=== PATIENT | female | born 1965 ===

== ENCOUNTER → 2021-05-08 | Outpatient (CLI) | payer MEDICAID ==
[~2021-05-08] MED LIST: ACET325T21 PO; ALBU2.5V8 IH; ASPI-630 PO; ATOR10TA PO; BENZ0.5T32 PO; CARV25TA2 PO; CLONAZEPAM1 MG PO; DEXAMETHASONE PRES.FREE 10 MG/ML VIAL. ONE; DIVA-53 PO; DOCU100C28 PO; FEXO-213 PO; FLUT16SP NS; IOHEXOL 180 MG/ML 10 ML VIAL. ONE; LAMO25TA5 PO; LEVO25TA4 PO; LOSA25TA54 PO; NORT25CA PO; OXYC1TAB15 PO; PANT40TA77 PO; QUET400T4 PO; SPIR25TA PO; TIZA-75 PO
--- NOTE | 2021-05-08 12:43 | PDOC4 ---
Procedure Note: ICD 10 Code: ICD 10 Code: M54.16 M51.36 M4 8.06 Procedure Note: Patient was consented for lumbar epidural steroid injection with fluoroscopic guidance. Risks were discussed including but not limited to: Bleeding, infection, possibility of epidural hematoma and subsequent neurological compromise, dural puncture, headaches, spinal cord and/or nerve damage, side effects of steroid medication, and poor results regarding pain control. Patient understands and wished to proceed. Procedure is lumbar epidural steroid injection under local anesthetic using mary rile prep and drape at the L4-5 level using C-arm fluoroscopic guidance in both AP and lateral views medications injected is 20 mg dexamethasone +10mL preservative-free normal saline and 2 mL contrast- condition at discharge is stable patient tolerated procedure well had no complications. ALESSANDRO VIRGEN MD May 08, 2021 12:43
--- NOTE | 2021-05-08 12:43 | PDOC1 ---
INITIAL PAIN CONSULT DATE OF SERVICE: DOS: DATE: 05/08/21 TIME: 12:35 CHIEF COMPLAINT: Chief Complaint: Low back and right lower extremity pain HISTORY OF PRESENT ILLNESS: 55-year-old female presents history of pain for about 5 months in the low back and right lower extremity without specific injury or accident that she is aware of is getting worse over time with pain across the low back into the right lower extremity posterior gluteus posterior lateral thigh lateral anterior thigh anteromedial thigh posterior calf and into the ankle and the top of the foot on the right side primarily worse with walking and standing changing positions. Patient reports it wakes her from sleep multiple times throughout the night does not affect her bowel bladder control but does affect her ability to walk and she has a cane which she is using with her today and holding in her left hand. Patient reports she has been seen by a neurosurgeon recently who is not recommending any surgery at this time and we do have those notes from Dr. Abhishek Erickson patient did have MRI scan lumbar spine we reviewed that with her today as well showing some significant changes with diffuse degenerative change greatest in the lower lumbar segments to space disease greatest at L4-5 with broad-based posterior disc bulge with left posterior paracentral disc protrusion or extrusion resulting in mild deformity of the ventral thecal sac and narrowing of the left lateral recess with moderate to severe facet arthropathy and ligamentum flavum hypertrophy resulting in moderate central canal stenosis and mild bilateral neuroforaminal stenosis L5-S1 shows small broad-based posterior disc bulge without significant stenosis L3-4 shows moderate broad-based posterior disc bulge with moderate facet arthropathy and ligamentum flavum hypertrophy wit h a mild central canal stenosis. Patient rates her disability rating 0-10, 10 being the worst as a 10 in all categories family house possibilities recreation social activity occupation sexual waiver self-care and life support activities. Patient has had physical therapy and still doing the stretching strength exercises from therapy also is taking oxycodone and morphine in the past which did do very well hydrocodone caused allergic reaction. Patient also taking Tylenol [id number] as well. Patient reports significant fatigability of the right lower extremity with ambulation but no actual full motor loss. Patient reports no bowel or bladder incontinence. PAST MEDICAL HISTORY: PMH: Hypertension, arthritis PREVIOUS SURGERIES: Past Surgical Hx: Right knee replacement x2, anterior cervical discectomy and fusion CURRENT MEDICATIONS: Current Meds: Active Scripts Medications Dose Route/Sig Max Daily Dose Days Date Category Levothyroxine Sodium 25 Mcg Tablet 1 Tab PO DAILY 05/08/21 Reported Tizanidine Hcl 4 Mg Tablet 4 Mg PO QID PRN 05/08/21 Reported Aldactone (Spironolactone) 25 Mg Tablet 1 Tab PO DAILY 05/08/21 Reported Aspirin 81 Mg Tab.chew 1 Tab PO DAILY 05/08/21 Reported Lipitor (Atorvastatin Calcium) 10 Mg Tablet 1 Tab PO QHS 05/08/21 Reported Carvedilol 25 Mg Tablet 25 Mg PO BIDWMEALS 05/08/21 Reported Losartan Potassium (Losartan Potassium) 25 Mg Tablet 25 Mg PO DAILY 05/08/21 Reported Docusate Sodium 100 Mg Capsule 1 Cap PO PRN DAILY PRN 30 05/08/21 Reported Docusate Sodium 100 Mg Capsule 1 Cap PO BID 7 05/08/21 Reported Acetaminophen 325 Mg Tablet 2 Tab PO PRN Q4-6HRS PRN 24 05/08/21 Reported Fluticasone Propionate Nasal [place] (Fluticasone Propionate) 16 Gm [place].susp 2 [place] NS DAILY 05/08/21 Reported Fexofenadine Hcl 180 Mg Tablet 1 Tab PO DAILY 05/08/21 Reported Pantoprazole Sodium (Pantoprazole Sodium) 40 Mg Tablet.dr 40 Mg PO DAILYAC 05/08/21 Reported Clonazepam 1 Mg Tablet 1 Mg PO TID 05/08/21 Reported Seroquel (Quetiapine Fumarate) 400 Mg Tablet 1 Tab PO QHS 05/08/21 Reported Proair Hfa Inhaler (Albuterol Sulfate) 8.5 Gm Hfa.aer.ad 2 Puff IH PRN Q4-6HRS PRN 21 05/08/21 Reported Lamictal (Lamotrigine) 25 Mg Tablet 1 Tab PO BID 05/08/21 Reported Benztropine Mesylate 0.5 Mg Tablet 1 Tab PO HS 05/08/21 Reported Divalproex Sodium 500 Mg Tablet.dr 1 Tab PO BID 05/08/21 Reported Nortriptyline Hcl 25 Mg Capsule 1 Cap PO QHS 05/08/21 Reported Percocet 5-325 Mg Tablet (Oxycodone/Acetaminophen) 1 Each Tablet 1 Tab PO PRN Q6HRS PRN 14 05/08/21 Rx FAMILY HISTORY: Family Hx: Hypercholesterolemia SOCIAL HISTORY: Social Hx: Patient is under alcohol does not smoke not use any illegal licit recreational drugs is single lives locally in [facility] REVIEW OF SYSTEMS: ROS: Positive for those items mentioned in history of present illness, all systems are reviewed, otherwise negative ,and are complete full and well-documented on patient's chart. PHYSICAL EXAM: VS: Blood pressure is 141/100 pulse 83 respirations 18 temperature 98.3 F height 5 feet 8 inches weight is 177 pounds. PE: PHYSICAL EXAMINATION: GENERAL: The patient is awake, alert, oriented, appropriate, very pleasant in demeanor HEENT: Shows normocephalic, atraumatic. Extraocular movements are intact and symmetrical. Oral cavity: Mucous membranes moist and pink. NECK: Shows anterior throat supple without palpable lymphadenopathy noted. Swallow reflex symmetrical. CHEST: Shows normal on inspection. Breath sounds are clear bilaterally, distant but no rales rhonchi or wheezes auscultated. HEART: Shows S1, S2 clear. No murmurs auscultated. ABDOMEN: Soft, nontender, nondistended. No palpable organomegaly is noted. No rebound or guarding demonstrated. BACK: Shows spine grossly in the midline. Normal-appearing cervical lordotic curvature. There is mild increased thoracic kyphosis, some minor flattening of the lumbar lordotic curvature. Lumbar paraspinous muscles show symmetrical on inspection, on palpation shows some moderate tenderness diffusely throughout the upper, middle and lower distribution of the paraspinous muscles bilaterally and also into the lower thoracic paraspinous musculature, firm and tender, but without specific trigger points, without radiation of pain. The patient has good rotational motion of the lumbar spine, both laterally as well as extension and flexion without significant difficulty. No tenderness over the spinous processes, sacrum or sacroiliac regions. EXTREMITIES: Lower extremities show deep tendon reflexes 2+ in the patellar and tendo calcaneus tendons. Motor exam is 4 on a scale of 5 with right dorsiflexion, extension, quadriceps and hamstring flexion and 5/5 on the left. Peripheral pulses are 1+ posterior tibial. No peripheral edema is noted bilaterally. Lower extremities are warm and dry to touch, equal in color and appearance. Straight leg raise noted to be positive on the right about 35 degrees, left side is negative. Gaenslen's and Scott's maneuvers are negative. The patient is able to stand, has difficulty getting up from seated position using the arms of the chair, walking with a significant favoring gait favoring the right lower extremity and using a cane in her left hand to ambulate. SKIN: Shows warm and dry, good turgor. No edema. No sores, rashes or bruising throughout. IMPRESSION: Impression: 55-year-old female with proximate 5-month history of low back right lower ex tremity pain and radicular fashion. MRI scan lumbar spine as noted Hypertension/arthritis Plan: Options discussed with the patient could exert medical management physical therapies interventional techniques. Patient like to pursue interventional techniques. We discussed a lumbar epidural steroid injections description as well as anatomical models to describe the procedure. Risks were discussed including but not limited to: Bleeding, infection, possibility of epidural hematoma and subsequent neurological compromise, dural puncture, headaches, spinal cord and/or nerve damage, side effects of steroid medication, and poor results regarding pain control. Patient understands and wished to proceed. Patient will return to clinic in approximately 2 weeks for follow-up, was counseled as to return appointment, activity level, and side effect to be aware of. Procedure is lumbar epidural steroid injection under local anesthetic using sterile prep and drape at the L4-5 level using C-arm fluoroscopic guidance in both AP and lateral views medications injected is 20 mg dexamethasone +10mL preservative-free normal saline and 2 mL contrast- condition at discharge is stable patient tolerated procedure well had no complications. ALESSANDRO VIRGEN MD May 08, 2021 12:43
== END | disposition home or self-care (01) ==
LOC: PNCL 10:34
PROVIDERS: ATTEND Anesthesiology
DX: M51.16 Intervertebral disc disorders with radiculopathy, lumbar region (principal); M48.061 Spinal stenosis, lumbar region without neurogenic claudication; Z79.82 Long term (current) use of aspirin; Z79.899 Other long term (current) drug therapy
CPT/HCPCS: 62323; J1100; Q9965; 64483

== ENCOUNTER → 2021-05-19 | Outpatient (CLI) | payer MEDICAID ==
[~2021-05-19] MED LIST changes: -DEXAMETHASONE PRES.FREE 10 MG/ML VIAL. ONE; +methylPREDNISolone ACETATE 40 MG/ML VIAL. ONE; +methylPREDNISolone ACETATE 80 MG/ML VIAL. ONE
--- NOTE | 2021-05-19 15:27 | PDOC4 ---
Procedure Note: ICD 10 Code: ICD 10 Code: M54.16 M51.36 M4 8.06 Procedure Note: Patient was consented for lumbar epidural steroid injection with fluoroscopic guidance. Risks were discussed including but not limited to: Bleeding, infection, possibility of epidural hematoma and subsequent neurological compromise, dural puncture, headaches, spinal cord and/or nerve damage, side effects of steroid medication, and poor results regarding pain control. Patient understands and wished to proceed. Procedure is lumbar epidural steroid injection under local anesthetic using mary rile prep and drape at the L4-5 level using C-arm fluoroscopic guidance in both AP and lateral views medications injected is 20 mg dexamethasone +10mL preservative-free normal saline and 2 mL contrast- condition at discharge is stable patient tolerated procedure well had no complications. ALESSANDRO VIRGEN MD May 19, 2021 15:27
--- NOTE | 2021-05-19 15:27 | PDOC ---
Progress Note - Pain Clinic Date of Service: DOS: DATE: 05/19/21 TIME: 15:23 Diagnosis: Dx: Lumbar radiculopathy with lumbar degenerative disease and lumbar spinal stenosis History or Present Illness: HPI: 55-year-old female returns for follow-up status post lumbar epidural steroid traction x1. Patient reports much better for several days following the injection about 75% and the pain began to return, and is now in both lower extremities were initially was only the right lower extremity but now the left lower extremity significantly painful as well in the posterior gluteus posterior lateral thigh lateral anterior thigh anteromedial thigh into the medial lower legs again more severe on the right side but returned after few days following the injection patient reported aching and sharp in the back shooting in the legs radiating can be constant severe with activity standing walking patient reports initially she was doing much better with walking doing household activities travel with greater ease and comfort of after several days the pain began to return still about 50% improvement overall with the left leg is now much more noticeable in daily activities patient rates her pain over the past week is a 10 on scale 10 at all times worst least and average is a 10 today patient reports no bowel or bladder incontinence no loss of motor function with significant fatigability especially of the right lower extremity. Physical Exam: VS: Blood pressure is 133/102 pulse 99 respirations 18 temperature 98.3 F weight is 185 pounds. PE: PHYSICAL EXAMINATION: GENERAL: The patient is awake, alert, oriented, appropriate, very pleasant in demeanor HEENT: Shows normocephalic, atraumatic. Extraocular movements are intact and symmetrical. Oral cavity: Mucous membranes moist and pink. Dentition is intact. NECK: Shows anterior throat supple without palpable lymphadenopathy noted. Swallow reflex symmetrical. CHEST: Shows normal on inspection. Breath sounds are clear bilaterally, no rales rhonchi or wheezes auscultated. HEART: Shows S1, S2 clear. No murmurs auscultated. ABDOMEN: Soft, nontender, nondistended. No palpable organomegaly is noted. No rebound or guarding demonstrated. BACK: Shows spine grossly in the midline. Normal-appearing cervical lordotic curvature. There is slightly increased thoracic kyphosis, some mild flattening of the lumbar lordotic curvature. Lumbar paraspinous muscles show symmetrical on inspection, on palpation shows some moderate tenderness diffusely throughout the upper, middle and lower distribution of the paraspinous muscles, but without specific trigger points, without radiation of pain. The patient has good rotational motion of the lumbar spine, both laterally as well as extension and flexion without significant difficulty. EXTREMITIES: Lower extremities show deep tendon reflexes 2+ in the patellar and tendo calcaneus tendons. Motor exam is 4 on a scale of 5 with right dorsiflexion, extension, quadriceps and hamstring flexion and 5/5 on the left. Peripheral pulses are 1+ posterior tibial. No peripheral edema is noted bilaterally. Lower extremities are warm and dry to touch, equal in color and appearance. SKIN: Shows warm and dry, good turgor. No edema. No sores, rashes or bruising throughout. Procedure: Procedure: Options discussed with the patient. Patient's chart was reviewed as her current medication regimen updated current review of systems updated today as well. We will proceed with a lumbar epidural steroid injection today with fluoroscopic guidance. Risks were discussed including but not limited to: Bleeding, infection, possibility of epidural hematoma and subsequent neurological compromise, dural puncture, headaches, spinal cord and/or nerve damage, side effects of steroid medication, and poor results regarding pain control. Patient understands and wished to proceed. Patient will return to the clinic in approximately 2 weeks for follow-up, was counseled as to return appointment, activity level, and side effect to be aware of. Medication Injected: Med Injected: Procedure is lumbar epidural steroid injection under local anesthetic using sterile prep and drape at the L4-5 level using C-arm fluoroscopic guidance in both AP and lateral views medications injected is 20 mg dexamethasone +10mL preservative-free normal saline and 2 mL contrast- condition at discharge is stable patient tolerated procedure well had no complications. Condition at Discharge: Condition at Discharge: Condition at discharge stable, paced tolerated procedure well and had no complications. ALESSANDRO VIRGEN MD May 19, 2021 15:27
== END | disposition home or self-care (01) ==
LOC: PNCL 14:36
PROVIDERS: ATTEND Anesthesiology
DX: M51.16 Intervertebral disc disorders with radiculopathy, lumbar region (principal); M48.061 Spinal stenosis, lumbar region without neurogenic claudication; Z79.82 Long term (current) use of aspirin; Z79.899 Other long term (current) drug therapy
CPT/HCPCS: 62323; J1030; J1040; Q9965

== ENCOUNTER → 2021-06-02 | Outpatient (CLI) | payer MEDICAID ==
[~2021-06-02] MED LIST changes: -IOHEXOL 180 MG/ML 10 ML VIAL. ONE; -methylPREDNISolone ACETATE 40 MG/ML VIAL. ONE; -methylPREDNISolone ACETATE 80 MG/ML VIAL. ONE
--- NOTE | 2021-06-02 11:10 | PDOC ---
Progress Note - Pain Clinic Date of Service: DOS: DATE: 06/02/21 TIME: 11:06 Diagnosis: Dx: Lumbar radiculopathy with lumbar degenerative disease and lumbar spinal stenosis History or Present Illness: HPI: 55-year-old female returns for follow-up status post lumbar epidural steroid injection x2. Patient reports she did very well after the last injection was having some increased pain about a week ago she called and we advised her to addition stretching strength exercises as well as increase her Tylenol level which she did but the pain began worse and she eventually presented to the emergency department an outside facility and was given some IV injections which helped and then started on physical therapy which she reports is helping she took that for about a week now and reports over the past several sessions she is feeling stronger in the legs and her back as well still has significant pain in the low back and into the lower extremities worse on the right than the left but doing better. Patient reports a 9 on scale 10 at worst least and average is a 9 today patient reports aching and sharp tight can be shooting in the right lower extremity stabbing radiating can be constant severe and unbearable with activity sleeping better at night though it still awakens her about every 3-4 hours. Patient reports no bowel or bladder incontinence no loss of motor function but significant fatigability of the right leg compared to the left. Patient feels that her physical therapy is beginning to help and she would like to maintain this we also discussed possible water therapy with her as well and we will make those arrangements. Physical Exam: VS: Blood pressure is 169/101 pulse 94 respirations 18 temperature 90.4 F weight is 186 pounds. PE: PHYSICAL EXAMINATION: GENERAL: The patient is awake, alert, oriented, appropriate, very pleasant in demeanor HEENT: Shows normocephalic, atraumatic. Extraocular movements are intact and symmetrical. Oral cavity: Mucous membranes moist and pink. Dentition is intact. NECK: Shows anterior throat supple without palpable lymphadenopathy noted. Swallow reflex symmetrical. CHEST: Shows normal on inspection. Breath sounds are clear bilaterally, no rales rhonchi or wheezes auscultated. HEART: Shows S1, S2 clear. No murmurs auscultated. ABDOMEN: Soft, nontender, nondistended. No palpable organomegaly is noted. BACK: Shows spine grossly in the midline. Normal-appearing cervical lordotic curvature. There is slightly increased thoracic kyphosis, some minor flattening of the lumbar lordotic curvature. Lumbar paraspinous muscles show symmetrical on inspection, on palpation shows some moderate tenderness diffusely throughout the upper, middle and lower distribution of the paraspinous muscles, but without specific trigger points, without radiation of pain. The patient has good rotational motion of the lumbar spine, both laterally as well as extension and flexion without significant difficulty. EXTREMITIES: Lower extremities show deep tendon reflexes 2+ in the patellar and tendo calcaneus tendons. Motor exam is 4 on a scale of 5 with right dorsiflexion, extension, quadriceps and hamstring flexion and 5/5 on the left. Peripheral pulses are 1+ posterior tibial. No peripheral edema is noted bilaterally. Lower extremities are warm and dry to touch, equal in color and appearance. SKIN: Shows warm and dry, good turgor. No edema. No sores, rashes or bruising throughout. Procedure: Procedure: Options discussed with the patient. Patient's old chart was reviewed as her current medication regimen updated current review of systems updated today as well. We will hold on further injections at this time as physical therapy started and patient feels it is beginning to help, we will add water therapy as well to her physical therapy as I feel this may be more beneficial for her. Patient will follow-up after physical therapy is completed. Did discuss potential additional interventional techniques that she would like to wait till after her physical therapy is completed and we will readdress those at that time. Also, will refill patient's oxycodone 5 mg to take every 6 hours as needed pain and instructed patient to use the sparingly will prescribe 20 tablets with no refills. Patient was given instructions well side effects beware with the medication. Medication Injected: Med Injected: None Condition at Discharge: Condition at Discharge: Condition at discharge is stable. ALESSANDRO VIRGEN MD Jun 02, 2021 11:10
== END | disposition home or self-care (01) ==
LOC: PNCL 10:12
PROVIDERS: ATTEND Anesthesiology
DX: M51.16 Intervertebral disc disorders with radiculopathy, lumbar region (principal); M48.061 Spinal stenosis, lumbar region without neurogenic claudication; Z79.82 Long term (current) use of aspirin; Z79.899 Other long term (current) drug therapy
CPT/HCPCS: 99212; G0463